=== PATIENT | male | born 1985 | race Two or more races ===

== ENCOUNTER 2016-09-12 02:29 | Emergency (ER) | payer MEDICAID ==
[~2016-09-12] VITALS: Ht 175.3 cm; Wt 106.6 kg
[2016-09-12 02:35] VITALS: BP 145/97
[2016-09-12] MEDS ORDERED: IBUPROFEN 600 MG TAB PO ONE (04:30)
== END 2016-09-12 04:34 | disposition home or self-care (01) ==
LOC: ER 02:33
DX: S92.322A Displaced fracture of second metatarsal bone, left foot, initial encounter for closed fracture (principal); S92.342A Displaced fracture of fourth metatarsal bone, left foot, initial encounter for closed fracture; Y99.8 Other external cause status; Z88.1 Allergy status to other antibiotic agents; W18.40XA Slipping, tripping and stumbling without falling, unspecified, initial encounter; Y93.89 Activity, other specified; Y92.89 Other specified places as the place of occurrence of the external cause
CPT/HCPCS: 29125; 73630